=== PATIENT | female | born 1945 | race Caucasian/White ===

== ENCOUNTER → 2020-09-21 | Outpatient (CLI) | payer MEDICARE, OTHER ==
[~2020-09-21] MED LIST: AMLO-150 PO; AMLO-211 PO; ATOR10TA9 PO; ATOR20TA37 PO; CARV6.252 PO; CHOL10003 PO; CHOL500051 PO; CYAN1TAB29 PO; DULA1.5P PO; ENAL10TA9 PO; FURO-92 PO; GABA300C10 PO; HYDR-3241 PO; HYDR-3343 PO; INSU100V35 INJ; LINA5TAB PO; LOPE1TAB4 PO; METF10002 PO; METF500T17 PO; OXYC-380 PO; PANT40TA6 PO; PREG75CA PO; SITA100T PO
[2020-09-21 16:26] LABS: BASOPHILS % (AUTO) 1 % (0-1); EOSINOPHILS % (AUTO) 2 % (1-7); LYMPHOCYTES % (AUTO) 19 % (22-44); MD NO; MEAN CORPUSCULAR HEMOGLOBIN 29.8 pg (27.0-34.8); MEAN CORPUSCULAR HGB CONC 32.4 g/dL (32.4-35.8); MEAN PLATELET VOLUME 9.8 fL (7.4-10.4); MONOCYTES % (AUTO) 7 % (2-9); NEUTROPHILS % (AUTO) 71 % (42-75); PLATELET COUNT 288 x10^3/uL (130-400); RED BLOOD COUNT 3.94 x10^6/uL (3.82-5.3); RED CELL DISTRIBUTION WIDTH 14.3 % (9.6-15.2)
[2020-09-21 16:35] LABS: ALBUMIN 3.4 g/dL (3.4-5.0); ANION GAP 11 mmol/L (5-15); CALCIUM 8.1 mg/dL (8.5-10.1); CHLORIDE 108 mmol/L (98-107); INTERNATIONAL NORMALIZED RATIO 1.01 (0.93-1.1); PROTHROMBIN TIME 10.8 Seconds (9.6-11.5)
[2020-09-21 16:40] LABS: ALANINE AMINOTRANSFERASE 18 U/L (12-78); ALKALINE PHOSPHATASE 104 U/L (45-117); BILIRUBIN,TOTAL 0.5 mg/dL (0.2-1.0); CREATININE 4.27 mg/dL (0.55-1.02); TOTAL PROTEIN 8.2 g/dL (6.4-8.2)
[2020-09-21 16:47] LABS: MICROSCOPIC INDICATED
== END | disposition home or self-care (01) ==
LOC: STAR 14:33
PROVIDERS: ATTEND Surgery
DX: Z01.818 Encounter for other preprocedural examination (principal); N18.9 Chronic kidney disease, unspecified; I44.7 Left bundle-branch block, unspecified; I51.7 Cardiomegaly; R94.31 Abnormal electrocardiogram [ECG] [EKG]; Z99.2 Dependence on renal dialysis; Z20.822 Contact with and (suspected) exposure to COVID-19
CPT/HCPCS: 80053; 81001; 85025; 85610; 85730; 87077; 87086; 87186; 87635; 93005

== ENCOUNTER 2020-09-27 13:01 | Day surgery (SDC) | payer MEDICARE, OTHER ==
[~2020-09-27] VITALS: Ht 170.2 cm; Wt 88.1 kg
[2020-09-27 13:19] VITALS: BP 127/74
[2020-09-27] MEDS ORDERED: FENTANYL PF 100 MCG/2ML ONE ×3 (15:30→17:36)
[2020-09-27] MEDS ORDERED: BUPIVACAINE/PF 0.25% ONE (15:31)
[2020-09-27] MEDS ORDERED: PROTAMINE SULFATE 10 MG/ML, 5ML ONE (15:32)
[2020-09-27] MEDS ORDERED: THROMBIN 5,000 UNIT VIAL TP ONE (15:32)
[2020-09-27] MEDS ORDERED: HEPARIN 1,000 UNITS/ML, 10ML ONE (15:32)
[2020-09-27] MEDS ORDERED: DEXAMETHASONE 4 MG/ML, 1ML ONE (15:47)
[2020-09-27] MEDS ORDERED: CEFAZOLIN 1,000 MG ONE (15:47)
[2020-09-27] MEDS ORDERED: ONDANSETRON 2MG/ML, 2ML ONE (15:47)
[2020-09-27] MEDS ORDERED: PROPOFOL 10 MG/ML, 20ML ONE (15:57)
[2020-09-27] MEDS ORDERED: DEXTROSE 50%, 50ML SYRINGE IVPush ONE (16:00)
[2020-09-27] MEDS ORDERED: hydrALAzine 20 MG/ML, 1ML IV PRN (16:30)
[2020-09-27] MEDS ORDERED: MIDAZOLAM 1 MG/ML, 2ML IV PRN (16:30)
[2020-09-27] MEDS ORDERED: HYDROmorphone 1 MG/ML, 1ML INJ IVPush PRN (16:30)
[2020-09-27] MEDS ORDERED: MEPERIDINE/PF 25MG/0.5ML IVPush PRN (16:30)
[2020-09-27] MEDS ORDERED: LABETALOL 5MG/ML, 20ML IV PRN (16:30)
[2020-09-27] MEDS ORDERED: EPHEDRINE 50 MG/ML, 1ML IVPush PRN (16:30)
[2020-09-27] MEDS ORDERED: ACETAMINOPHEN 325 MG TABLET PO PRN (16:30)
[2020-09-27] MEDS ORDERED: PROMETHAZINE 12.5 MG SUPP PR PRN (16:30)
[2020-09-27] MEDS ORDERED: ALBUTEROL SULFATE 2.5 MG/3 ML NPPB PRN (16:30)
[2020-09-27] MEDS ORDERED: ONDANSETRON 2MG/ML, 2ML IVPush PRN (16:30)
[2020-09-27] MEDS ORDERED: DIPHENHYDRAMINE 50 MG/ML, 1ML IVPush PRN ×2 (16:30)
[2020-09-27] MEDS ORDERED: DIAZEPAM 5 MG/ML, 2ML IVPush PRN (16:30)
[2020-09-27] MEDS ORDERED: PROMETHAZINE 25 MG/ML, 1ML IVPush PRN (16:30)
[2020-09-27] MEDS ORDERED: OXYcodone 5 MG/5 ML ORAL.SOL UDC PO PRN (16:30)
[2020-09-27] MEDS: FENTANYL PF 100 MCG/2ML IV PRN ×4 (17:20→18:00)
[2020-09-27] MEDS ORDERED: ACETAMINOPHEN 650 MG/20.3 ML UDC ONE (17:24)
[2020-09-27] MEDS ORDERED: OXYcodone 5 MG/5 ML ORAL.SOL UDC ONE (17:24)
[2020-09-27] MEDS ORDERED: HYDROmorphone 1 MG/ML, 1ML INJ ONE (17:59)
[2020-09-27] MEDS ORDERED: ACETAMINOPHEN 325 MG TABLET ONE (19:23)
== END 2020-09-27 20:00 | disposition home or self-care (01) ==
LOC: OUT 13:01
PROVIDERS: ATTEND Surgery
DX: I12.9 Hypertensive chronic kidney disease with stage 1 through stage 4 chronic kidney disease, or unspecified chronic kidney disease (principal); E10.22 Type 1 diabetes mellitus with diabetic chronic kidney disease; N18.4 Chronic kidney disease, stage 4 (severe); E10.40 Type 1 diabetes mellitus with diabetic neuropathy, unspecified; E66.9 Obesity, unspecified; E78.5 Hyperlipidemia, unspecified; M19.90 Unspecified osteoarthritis, unspecified site; Z68.30 Body mass index [BMI] 30.0-30.9, adult; Z88.0 Allergy status to penicillin; Z88.1 Allergy status to other antibiotic agents; Z88.2 Allergy status to sulfonamides; Z90.710 Acquired absence of both cervix and uterus; Z79.899 Other long term (current) drug therapy; Z98.890 Other specified postprocedural states; Z99.2 Dependence on renal dialysis
CPT/HCPCS: 36832; 82962; J1644; J2704; J2720; J3010; J0690; J1100; J2405

== ENCOUNTER → 2020-12-02 | Outpatient (CLI) | payer MEDICARE, OTHER ==
[2020-12-02 14:33] LABS: BASOPHILS % (AUTO) 1 % (0-1); EOSINOPHILS % (AUTO) 2 % (1-7); LYMPHOCYTES % (AUTO) 20 % (22-44); MEAN CORPUSCULAR HEMOGLOBIN 29.8 pg (27.0-34.8); MEAN CORPUSCULAR HGB CONC 32.4 g/dL (32.4-35.8); MEAN PLATELET VOLUME 10.1 fL (7.4-10.4); MICROSCOPIC AUTO; MONOCYTES % (AUTO) 8 % (2-9); NEUTROPHILS % (AUTO) 70 % (42-75); PLATELET COUNT 280 x10^3/uL (130-400); RED BLOOD COUNT 3.96 x10^6/uL (3.82-5.3); RED CELL DISTRIBUTION WIDTH 17.1 % (9.6-15.2)
[2020-12-02 14:42] LABS: ALBUMIN 3.6 g/dL (3.4-5.0); ANION GAP 11 mmol/L (5-15); CALCIUM 7.3 mg/dL (8.5-10.1); CHLORIDE 106 mmol/L (98-107)
[2020-12-02 14:45] LABS: ALANINE AMINOTRANSFERASE 28 U/L (12-78); ALKALINE PHOSPHATASE 132 U/L (45-117); BILIRUBIN,TOTAL 0.4 mg/dL (0.2-1.0); CREATININE 4.36 mg/dL (0.55-1.02); TOTAL PROTEIN 8.1 g/dL (6.4-8.2)
[2020-12-02 14:54] LABS: MD NO
[2020-12-02 15:57] LABS: INTERNATIONAL NORMALIZED RATIO 1.07 (0.93-1.1); PROTHROMBIN TIME 11.4 Seconds (9.6-11.5)
== END | disposition home or self-care (01) ==
LOC: STAR 13:07
PROVIDERS: ATTEND Neurological Surgery
DX: Z01.812 Encounter for preprocedural laboratory examination (principal); Z20.822 Contact with and (suspected) exposure to COVID-19; M48.061 Spinal stenosis, lumbar region without neurogenic claudication; I25.2 Old myocardial infarction; I51.7 Cardiomegaly
CPT/HCPCS: 36415; 71046; 80053; 81001; 85025; 85610; 85730; 87086; 93005; U0003

== ENCOUNTER → 2021-05-23 | Outpatient (CLI) | payer MEDICARE, OTHER ==
[~2021-05-23] MED LIST changes: +OXYC-302 PO; -OXYC-380 PO; +OXYC-501 PO; +TIZA-106 PO
== END | disposition home or self-care (01) ==
LOC: RAD 10:42
PROVIDERS: ATTEND Nurse Practitioner
DX: I12.0 Hypertensive chronic kidney disease with stage 5 chronic kidney disease or end stage renal disease (principal); E11.22 Type 2 diabetes mellitus with diabetic chronic kidney disease; R80.9 Proteinuria, unspecified; E87.2 Acidosis; N18.5 Chronic kidney disease, stage 5; D64.9 Anemia, unspecified; E61.1 Iron deficiency; N25.0 Renal osteodystrophy; E78.5 Hyperlipidemia, unspecified; K21.9 Gastro-esophageal reflux disease without esophagitis; M54.5 Low back pain; Z98.84 Bariatric surgery status; Z87.448 Personal history of other diseases of urinary system
CPT/HCPCS: 78070; A9500